=== PATIENT | female | born 1950 | race Caucasian/White ===

== ENCOUNTER → 2024-10-22 | Outpatient (CLI) | payer MEDICARE, BC, SELFPAY ==
[2024-10-22 11:11] LABS: Collection Type, Urine Clean Catch
[2024-10-22 11:28] LABS: Basophils # (Auto) 0.1 Thou/mm3 (0.0-0.2); Basophils % (Auto) 1 % (0-2.5); Eosinophils # (Auto) 0.2 Thou/mm3 (0.0-0.5); Eosinophils % (Auto) 4 % (0-10); Hematocrit 42.9 % (36.0-46.0); Immature Granulocytes % (Auto) 0 % (0-0); Immature Granulocytes Auto 0.01 Thou/mm3 (0.00-0.00); Lymphocytes # (Auto) 1.4 Thou/mm3 (1.0-4.8); Lymphocytes % (Auto) 31 % (10-50); Mean Corpuscular HGB Conc 32.6 g/dl (31.0-37.0); Mean Corpuscular Hemoglobin 29.6 pg (25.0-35.0); Mean Corpuscular Volume 91 fL (80-100); Monocytes # (Auto) 0.3 Thou/mm3 (0.0-0.8); Monocytes % (Auto) 6 % (0-12); Neutrophils # (Auto) 2.6 Thou/mm3 (1.8-7.7); Neutrophils % (Auto) 57 % (37-80); Nucleated Red Blood Cell % 0 /100 WBC (0); Platelet Count 236 Thou/mm3 (140-440); RDW Standard Deviation 44.9 fL (36.4-46.3); Red Blood Count 4.73 Miln/mm3 (4.00-5.20); White Blood Count 4.6 Thou/mm3 (3.6-11.0)
[2024-10-22 11:47] LABS: Bacteria,Urine Rare; Bilirubin,Urine Negative (Negative); Blood,Urine Negative (Negative); Clarity,Urine Clear (Clear/Hazy); Color,Urine Colorless (Lt Yel-Yel); Glucose, Urine Negative (Negative); Ketones,Urine Negative (Negative); Leukocyte Esterase,Urine Positive (Negative); Nitrite,Urine Negative (Negative); Protein,Urine Negative (Neg - Trace); RBC,Urine 1 /hpf (0-3); Specific Gravity,Urine 1.008 (1.001-1.035); Squamous Epithelial Cell,Urine 3 /hpf (0-5); Urobilinogen,Urine Negative mg/dL (0.0-1.0); WBC,Urine 51 /hpf (0-5)
[2024-10-22 11:50] LABS: Alanine Aminotransferase 16 U/L (10-49); Albumin, Serum 4.1 gm/dL (3.4-4.8); Albumin/Globulin Ratio 1.7 (1.2-2.2); Alkaline Phosphatase 82 U/L (46-116); Anion Gap 3 (7-16); Aspartate Amino Transferase 19 U/L (0-34); BUN/Creatinine Ratio 24 Ratio (12-20); Bilirubin,Total 0.7 mg/dL (0.3-1.2); Blood Urea Nitrogen 19 mg/dL (9-23); Calcium 9.4 mg/dL (8.3-10.6); Calcium (Corrected) 9.4 mg/dL (8.5-10.1); Carbon Dioxide 30.8 mMol/L (20.0-31.0); Cardiac Risk Estimate 2.4 RATIO (3.7-5.6); Chloride 107 mMol/L (98-107); Cholesterol 184 mg/dL (132-200); Creatinine (Component) 0.8 mg/dL (0.6-1.3); Globulin 2.4 gm/dL (2.3-3.5); Glucose 87 mg/dL (74-106); HDL Cholesterol 77 mg/dL (40-60); LDL Cholesterol,Calculated 91 mg/dL (0-130); Osmolality,Calculated 282 (275-295); Potassium 4.3 mMol/L (3.4-5.1); Sodium 141 mMol/L (136-145); Thyroid Stimulating Hormone 1.91 uIU/mL (0.55-4.78); Total Protein 6.5 gm/dL (5.7-8.2); Triglycerides 82 mg/dL (30-150); eGFR > 60 See Note
== END | disposition home or self-care (01) ==
LOC: COPL 10:23
PROVIDERS: PCP Family Medicine; Referring Provider Family Medicine; Visit Provider Family Medicine
DX: I10 Essential (primary) hypertension (principal)
CPT/HCPCS: 36415; 80053; 80061; 81001; 84443; 85025

== ENCOUNTER → 2024-10-26 | Outpatient (CLI) | payer MEDICARE, BC, SELFPAY ==
--- NOTE | 2024-10-26 13:49 | XR_ITS ---
Examination: Left knee 2 views Technique one AP lateral left knee 2 views Exam date and time: October 26, 2024, 49 hours Indications: Left knee pain one year. Findings: Advanced tricompartment osteoarthritis, severe narrowing lateral joint space No fracture No dislocation Small knee effusion Impression: Advanced tricompartment osteoarthritis
--- NOTE | 2024-10-26 13:49 | XR_ITS ---
Examination: Bilateral PA knees standing flexion Exam date and time: 2024, 1415 hrs. Indications: Left knee pain one year. Findings: Moderate osteopenia Advanced narrowing lateral joint space left knee Total right knee arthroplasty with satisfactory alignment No fracture Impression: Advanced narrowing lateral joint space left knee
--- NOTE | 2024-10-26 13:49 | XR_ITS ---
Examination: Shoulder,left, 3 views Technique: Shoulder AP internal rotation, AP external rotation, Y view shoulder, 3 views Exam date and time :October 26, 2024 1558 hrs. Indications: Left shoulder pain beginning 6 months ago. Findings: Mild to moderate glenohumeral joint osteoarthritis No shoulder fracture or dislocation. No thoracic vertebral bodies Impression: Mild to moderate glenohumeral joint osteoarthritis
== END | disposition home or self-care (01) ==
PROVIDERS: PCP Family Medicine; Referring Provider Orthopaedic Surgery; Visit Provider Orthopaedic Surgery
DX: M19.012 Primary osteoarthritis, left shoulder (principal); M17.12 Unilateral primary osteoarthritis, left knee; M25.862 Other specified joint disorders, left knee
CPT/HCPCS: 73030; 73560; 73565

== ENCOUNTER 2024-12-06 10:26 | Outpatient (AMB) | payer MEDICARE, BC, SELFPAY ==
[2024-12-06 10:48] VITALS: BP 170/108; PULSE 96; RESP 18; TEMP 36.4; O2SAT 96; BMI 28.1
--- NOTE | 2024-12-06 10:48 | PD.ORTHCLVIS ---
Vital signs 12/06/24 10:48 Height 1.68 m Height Method Stated Weight 79.067 kg Weight Measurement Method Standing Scale BMI 28.1 BP 170/108 H Blood Pressure Source Automatic Cuff Blood Pressure Location Left Upper Arm Position Sitting Respiration 18 Pulse 96 Pulse Source Monitor Temp 97.6 F Temp Source Temporal Artery Scan Pulse Oximetry (%) 96 Oxygen Delivery Method Room Air Med/Allergies Allergies & Medications Allergies adhesive tape Allergy (Severe, Verified 12/06/24 10:49) ITICHING hydrocodone Allergy (Severe, Verified 12/06/24 10:49) ITICHING Medication Reconciliation celecoxib 200 mg capsule (Celebrex) 200 mg PO QDAY #0 caps 10/09/14 [History Confirmed 12/06/24] duloxetine 30 mg capsule,delayed release (Cymbalta) 30 mg PO BID #0 caps 10/09/14 [History Confirmed 12/06/24] estradiol 1 mg tablet (Estrace) 1 mg PO QDAY #0 tabs 10/09/14 [History Confirmed 12/06/24] tramadol 50 mg tablet (Ultram) 50 mg PO Q4HR PRN AGITATION OR PAIN #0 tabs 10/09/14 [History Confirmed 12/06/24] zolpidem 5 mg tablet (Ambien) 6.25 mg PO HS #0 tabs 10/09/14 [History Confirmed 12/06/24] Exam Exam Patient is in no acute distress and is cooperative with the examination today. Breathing is nonlabored. Patient has a normal mood and affect. Bilateral extremities were evaluated and demonstrates sensation intact to light touch. Palpable pedal pulses are present. No significant edema is present. Bilateral hips were examined. The patient has no pain with log roll of the hips. Internal rotation to 30 degrees and external rotation to 30 degrees is painless. Negative FADIR. Right knee incisions clean dry intact. Range of motion is 0 to 100 degrees Left knee was examined today. The left knee is in varus alignment. Range of motion from 0-115 degrees. Knee is stable to varus and valgus as well as AP translation with <5mm. Patient has a negative McMurrays. There is no pain with patellofemoral compression and no crepitus noted. The knee is tender to palpation medially. X-rays from [facility]] imaging was reviewed by me today. This demonstrates complete joint space obliteration laterally and valgus deformity. Assessment and Plan Problem List (1) Arthritis of left knee: Status: Acute Plan: Patient is a pleasant 74-year-old female with a left knee pain and left knee arthritis of significant severity. The pain is affecting her quality life and happiness. She is currently on the fence whether she wants a knee replacement now or after her trip.We discussed total knee replacement in great detail and she is still deciding when she wants surgery The nature and purpose of the total knee replacement, alternative method(s) of treatment, the material risks involved, and the possibility of complications were fully explained to the patient. The patient does NOT have any of the following contraindications to TKA: - Active infection of the knee joint, OR - Active systemic bacteremia, OR - Active skin infection or open wound at surgical site, OR - Neuropathic arthritis, OR - Severe, rapidly progressive neurological disease, OR - Severe medical condition that makes risks of surgery outweigh the potential benefit The patient was told the most common risks and complications associated with a total knee replacement include, but are not limited to: blood clots in the leg, fatal pulmonary embolism, dislocation of the prosthesis, intraoperative and postoperative fractures of the femur or tibia, infection, failure of the prosthesis or grafting materials, complications from anesthesia, reactions to blood transfusions, postoperative leg length inequality, instability of the knee replacement, nerve damage or injury, vascular injury, delayed wound healing, infection, other injury or even . In addition, there are risks associated with anesthesia given during this operation. Also, the patient was told that after undergoing a total knee replacement there may still be persistent pain or disability. The patient was informed that the success of this operation in part depends upon the mechanical devices which are going to be implanted and that these devices can fail or malfunction, and may need to be repaired or replaced and there are no guarantees as to the longevity of this device or its parts and that it or its parts could fail prematurely. The patient was also notified that during the course of surgery, there may be a need to use bone graft from donors, and that any bone graft used will be carefully screened for communicable diseases, including AIDS, hepatitis, Shaq-Creutzfeldt, or other diseases, but despite the screening procedures, there is a small chance that they could contract one of these diseases. Finally, the patient was asked to follow completely and fully with all advice and recommended treatments, and that recovery and ultimate outcome are affected by their compliance with recommended treatment. We discussed the risks, benefits and treatment alternatives, and the patient is interested in proceeding with surgery. We will set up surgery at her convenience Advanced Care Planning Discussion Advance care planning discussed with:: patient Office Procedures GNS Level of Care Nursing/Assessment Patient Status: Initial/New Patient Nursing Assessment/Reassesment: Medication Reconciliation, Update PMH in EMR and Vital Signs Coordination of Care: Complex Care and Chronic Disease 1-5, Education Complex Pt/Fam, Consent,records obtained, informed consent, 1 Ins Authorization, Lab and Imaging orders, Results/Orders obtained and Staff clarify orders New Patient Charge New Patient Point Assignment: 1124 New Patient Point Charge: DISH UP PERSON Level 4 ([id number]) MA Intake Visit Data Collection New Patient or Established: New Patient (never been to [facility]) Reason for Visit:: LEFT KNEE OSTEOARTHRITIS PCP or OBGYN visit in last 3 months: Yes Hx Now: No Do You Feel Safe at Home: Yes Authorities Contacted: N/A Questionairres Past Medical History Past Medical History Have you ever been diagnosed with any of the following: Cardiology Problems Hypertension: Yes Respiratory Problems Smoking: No Smoking Exposure: No Musculoskeletal Problems Arthritis: Yes Other Problems Blood Transfusions: Yes Subjective Visit Visit for: new patient, knee and x-rays Immunization / Flu Flu Vaccine in the Last 12 Months: Yes Flu Vaccine Exclusion Criteria: Already Received History of Present Illness Chief complaint: Left knee pain Date of injury / onset of symptoms: 11/2023 Kee is a pleasant 74-year-old female with a prior right total knee replacement done quite a while ago. She significant left knee pain and left knee arthritis with valgus deformity. She is currently on the fence whether she wants to get surgery. She has failed conservative treatment including anti-inflammatories and injections in the past. She is going on a trip in April and is trying to figure out if she wants to get the surgery before or after the trip. Personal History Occupation: RETIRED Pain Pain level (0-10): 2 Pain duration: ON AND OFF Pain location: anterior Pain quality: aching Associated signs & symptoms: none Ambulatory data Ambulatory device: none Treatments Improvement with previous injections: No Improvement with PT: No Improvement with NSAIDS: no Review of Systems Review of Systems: All systems negative unless otherwise noted in HPI.
== END 2024-12-06 11:27 | disposition home or self-care (01) ==
LOC: HODSRG 10:26
PROVIDERS: PCP Family Medicine; Referring Provider Family Medicine; Supervising Provider Orthopaedic Surgery Adult Reconstructive Orthopaedic Surgery; Visit Provider Orthopaedic Surgery Adult Reconstructive Orthopaedic Surgery
DX: M17.12 Unilateral primary osteoarthritis, left knee (principal); M25.562 Pain in left knee; M21.062 Valgus deformity, not elsewhere classified, left knee; I10 Essential (primary) hypertension
CPT/HCPCS: 99204; G0463

== ENCOUNTER 2024-12-23 10:16 | Emergency (ER) | payer MEDICARE, BC, SELFPAY ==
[2024-12-23] VITALS (11 sets, daily range): BP systolic 77–222; BP diastolic 45–115; PULSE 77–111; RESP 16–18; TEMP 36.6–36.7; O2SAT 97–98
--- NOTE | 2024-12-23 10:31 | EKG_ITS ---
[facility] Test Date: 2024-12-23 Pat Name: ROX LORENZO Department: Room: - Gender: Female Fashion Model: : 1950 Requested By: Ray Packer Order Number: [id number] Reading MD: Ray Packer Measurements Intervals [place] Rate: 87 P: 10 [place]: 160 QRS: 43 QRSD: 94 T: 40 QT: 360 QTc: 434 Interpretive Statements SINUS RHYTHM WITH OCCASIONAL VENTRICULAR PREMATURE COMPLEXES No previous ECG available for comparison /store/S0/[id number].pdf
--- NOTE | 2024-12-23 10:31 | PD.EDRME ---
Rapid Medical Screening Exam E Arrival date/time: 12/23/24 10:16 74-year-old female with a history of hypertension presents to the emergency room with a chief complaint weakness, lightheadedness, and an elevated blood pressure reading. Patient denies any chest pain, palpitations. I have greeted and performed a focused initial assessment of this patient. A comprehensive ED assessment and evaluation of the patient, analysis of all test results, and completion of the medical decision making process will be conducted by additional ED providers. Chief Complaint: General Adult/Misc Complain Vital signs: Vital Signs Temperature 97.8 F 12/23/24 10:26 Pulse Rate 111 H 12/23/24 10:26 Respiratory Rate 18 12/23/24 10:26 Blood Pressure 199/113 H 12/23/24 10:26 Pulse Oximetry (%) 97 12/23/24 10:26 Oxygen Delivery Method Room Air 12/23/24 10:26 Vital signs reviewed by provider: Yes
[2024-12-23 10:48] LABS: Basophils # (Auto) 0.1 Thou/mm3 (0.0-0.2); Basophils % (Auto) 1 % (0-2.5); Eosinophils # (Auto) 0.2 Thou/mm3 (0.0-0.5); Eosinophils % (Auto) 4 % (0-10); Hematocrit 43.1 % (36.0-46.0); Hemoglobin 14.9 g/dL (12.0-16.0); Immature Granulocytes % (Auto) 0 % (0-0); Lymphocytes # (Auto) 1.3 Thou/mm3 (1.0-4.8); Lymphocytes % (Auto) 23 % (10-50); Mean Corpuscular HGB Conc 34.6 g/dl (31.0-37.0); Mean Corpuscular Hemoglobin 30.2 pg (25.0-35.0); Mean Corpuscular Volume 87 fL (80-100); Monocytes # (Auto) 0.4 Thou/mm3 (0.0-0.8); Monocytes % (Auto) 6 % (0-12); Neutrophils # (Auto) 3.8 Thou/mm3 (1.8-7.7); Neutrophils % (Auto) 66 % (37-80); Nucleated Red Blood Cell % 0 /100 WBC (0); Platelet Count 261 Thou/mm3 (140-440); RDW Standard Deviation 42.5 fL (36.4-46.3); Red Blood Count 4.93 Miln/mm3 (4.00-5.20); White Blood Count 5.8 Thou/mm3 (3.6-11.0)
--- NOTE | 2024-12-23 10:49 | PD.EDRECHK ---
ED Recheck Abnl Lab Rx-RME/HPI General Chief Complaint: General Adult/Misc Complain Stated Complaint: HIGH BP 180/116 THIS MORNING, LITE HEADED Time Seen by Provider: 12/23/24 10:38 Arrival date/time: 12/23/24 10:16 RME / HPI RME / HPI narrative: 12/23/24 10:16 74-year-old female with a history of hypertension presents to the emergency room with a chief complaint weakness, lightheadedness, and an elevated blood pressure reading. Patient denies any chest pain, palpitations. I have greeted and performed a focused initial assessment of this patient. A comprehensive ED assessment and evaluation of the patient, analysis of all test results, and completion of the medical decision making process will be conducted by additional ED providers. DR. JACK MAIN ED EVALUATION: Related Data Home Medications ?Medication ?Instructions ?Recorded ?Confirmed celecoxib 200 mg capsule (Celebrex) 200 mg PO QDAY #0 caps 10/09/14 12/06/24 duloxetine 30 mg capsule,delayed 30 mg PO BID #0 caps 10/09/14 12/06/24 release (Cymbalta) estradiol 1 mg tablet (Estrace) 1 mg PO QDAY #0 tabs 10/09/14 12/06/24 tramadol 50 mg tablet (Ultram) 50 mg PO Q4HR PRN AGITATION OR 10/09/14 12/06/24 PAIN #0 tabs zolpidem 5 mg tablet (Ambien) 6.25 mg PO HS #0 tabs 10/09/14 12/06/24 Allergies Allergy/AdvReac Type Severity Reaction Status Date / Time adhesive tape Allergy Severe ITICHING Verified 12/23/24 10:19 hydrocodone Allergy Severe ITICHING Verified 12/23/24 10:19 Course Orders Category Date Time Status EKG (ED ONLY) *Do not use* NOW Care 12/23/24 10:31 Active EKG (ED Only) Stat Exams 12/23/24 10:31 Ordered B-Type Natriuretic Peptide Stat Lab 12/23/24 10:40 Received CBC Stat Lab 12/23/24 10:40 Received Comprehensive Metabolic Panel Stat Lab 12/23/24 10:40 Received Magnesium Stat Lab 12/23/24 10:40 Received Troponin I Stat Lab 12/23/24 10:40 Received Urinalysis Stat Lab 12/23/24 10:31 Ordered cloNIDine HCL [Catapres] Med 12/23/24 10:31 Discontinued 0.1 mg PO X1 ONE Vital Signs Vital signs: Vital Signs Temperature 97.8 F 12/23/24 10:26 Pulse Rate 111 H 12/23/24 10:26 Respiratory Rate 18 12/23/24 10:26 Blood Pressure 199/113 H 12/23/24 10:26 Pulse Oximetry (%) 97 12/23/24 10:26 Oxygen Delivery Method Room Air 12/23/24 10:26 Recheck / Abnormal Lab / Rx MDM Narrative MDM Narrative:: ILesly am scribing for and in the presence of Dr. Jack. Medications / Prescriptions Medication administrations:: Medication Administration History Discontinued Medications Clonidine (Clonidine Hcl 0.1 Mg Tablet) 0.1 mg PO X1 ONE Stop: 12/23/24 10:32 Discharge Plan Prescriptions/Referrals Prescriptions/Med Rec: No Action celecoxib [Celebrex] 200 MG capsule 200 mg PO QDAY Qty: 0 estradiol [Estrace] 1 MG tablet 1 mg PO QDAY Qty: 0 zolpidem [Ambien] 5 MG tablet 6.25 mg PO HS Qty: 0 duloxetine [Cymbalta] 30 MG capsule,delayed release(DR/EC) 30 mg PO BID Qty: 0 tramadol [Ultram] 50 MG tablet 50 mg PO Q4HR PRN (Reason: AGITATION OR PAIN) Qty: 0 Patient Comments: FOR PAIN, NOT TO EXCEED 8 TABS IN 24 HRS Patient/Caregiver Discharge Instructions Print Language: Trinidadian
--- NOTE | 2024-12-23 10:59 | EDNOTE_ITS ---
ED Weakness RME/HPI General Chief complaint: General Adult/Misc Complain Stated complaint: HIGH BP 180/116 THIS MORNING, LITE HEADED Time Seen by Provider: 12/23/24 10:38 Arrival date/time: 12/23/24 10:16 Limitations: no limitations RME / HPI RME / HPI Narrative: 12/23/24 10:16 74-year-old female with a history of hypertension presents to the emergency room with a chief complaint weakness, lightheadedness, and an elevated blood pressure reading. Patient denies any chest pain, palpitations. I have greeted and performed a focused initial assessment of this patient. A comprehensive ED assessment and evaluation of the patient, analysis of all test results, and completion of the medical decision making process will be conducted by additional ED providers. DR. 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 No chest pain, abdominal pain, vomiting, or other symptoms at this time. Related Data Home Medications ?Medication ?Instructions ?Recorded ?Confirmed celecoxib 200 mg capsule (Celebrex) 200 mg PO QDAY #0 caps 10/09/14 12/06/24 duloxetine 30 mg capsule,delayed 30 mg PO BID #0 caps 10/09/14 12/06/24 release (Cymbalta) estradiol 1 mg tablet (Estrace) 1 mg PO QDAY #0 tabs 0 10/09/14 12/06/24 tramadol 50 mg tablet (Ultram) 50 mg PO Q4HR PRN AGITA TION OR 10/09/14 12/06/24 PAIN #0 tabs zolpidem 5 mg tablet (Ambien) 6.25 mg PO HS #0 tabs 12/06/24 Previous Rx's ?Medication ?Instructions ?Recorded hydrochlorothiazide 12.5 mg tablet 12.5 mg PO QAM hype rtension #10 12/23/24 tabs lisinopril 5 mg tablet 5 mg PO QDAY hypertension #1 0 tabs 12/23/24 Allergies Allergy/AdvReac Type Severity Reaction Status Date / Time adhesive tape Allergy Severe ITICHING Verified 12/23/24 10:19 hydrocodone Allergy Severe ITICHING Verified 12/23/24 10:19 Review of Systems Review of Systems Systems Reviewed: All systems reviewed, normal except as documented Narrative Review of Systems: GEN: No fever, no chills, no weight loss EYES: No discharge, no visual changes, no pain HEENT: No ear pain, no congestion, no sore throat PULM: No shortness of breath, no cough, no congestion CV: No chest pain, no dyspnea on exertion, no palpitations GI: No nausea, no vomiting, no diarrhea, no pain, no constipation : No frequency, no urgency and no dysuria MUSC/SKEL: No joint pain, no back pain SKIN: No rash PSYCH: No hallucinations, no depression HEME/LYMPH: No easy bleeding or bruising tendencies NEURO: + generalized weakness, no headache Past Medical History Past Medical History CARDIAC: Positive Hypertension MUSCULOSKELETAL: Positive Arthritis OTHER HISTORY: Positive Blood Transfusions Social History SMOKING STATUS: Never smoker SUBSTANCE USE: does not use ALCOHOL: Never ED Exam General Limitations: Present no limitations General appearance: Present alert, in no apparent distress and anxious (mild) Head Head exam: Present atraumatic, normocephalic and normal inspection Eye Eye exam: Present normal appearance, PERRL and EOMI ENT ENT exam: Present normal exam, normal oropharynx and mucous membranes moist Neck Neck exam: Present normal inspection, full ROM, trachea midline and other (old surgical scar in lower anterior neck area) Chest Chest inspection: Present normal inspection and symmetric chest wall rise Respiratory Respiratory exam: Present normal lung sounds bilaterally Cardiovascular Cardiovascular exam: Present regular rate, normal rhythm and normal heart sounds Abdominal Exam Abdominal exam: Present soft and normal bowel sounds Extremities Exam Extremities exam: Present normal inspection, full ROM and other (changes of osteoarthritis to bilateral hands) Back Exam Back exam: Present normal inspection and full ROM Neurological Exam Neurological exam: Present alert, oriented X3 and CN II-XII intact Psychiatric Psychiatric exam: Present normal affect and normal mood Skin Skin exam: Present warm, dry, intact and normal color Course Quality Measures none Orders Category Date Time Status EKG (ED ONLY) *Do not use* NOW Care 12/23/24 10:31 Completed Hep [Insert IV] NOW Care 12/23/24 10:56 Active Insert IV NOW Care 12/23/24 11:33 Completed EKG (ED Only) Stat Exams 12/23/24 10:31 Draft B-Type Natriuretic Peptide Stat Lab 12/23/24 10:40 Completed CBC Stat Lab 12/23/24 10:40 Completed Comprehensive Metabolic Panel Stat Lab 12/23/24 10:40 Completed Magnesium Stat Lab 12/23/24 10:40 Completed Troponin I Stat Lab 12/23/24 10:40 Completed Urinalysis Stat Lab 12/23/24 11:18 Completed Lisinopril [Prinivil] Med 12/23/24 13:31 Discontinued 10 mg PO X1 ONE cloNIDine HCL [Catapres] Med 12/23/24 10:31 Discontinued 0.1 mg PO X1 ONE cloNIDine HCL [Catapres] Med 12/23/24 12:21 Discontinued 0.1 mg PO X1 ONE hydrALAZINE INJ [Apresoline Inj] Med 12/23/24 10:56 Discontinued 5 mg IV X1 ONE hydrALAZINE INJ [Apresoline Inj] Med 12/23/24 11:55 Discontinued 5 mg IV X1 ONE hydrALAZINE INJ [Apresoline Inj] Med 12/23/24 12:21 Discontinued 5 mg IV X1 ONE hydroCHLOROthiazide Med 12/23/24 13:31 Discontinued 12.5 mg PO X1 ONE Vital Signs Vital signs: Vital Signs Temperature 97.8 F 12/23/24 10:26 Pulse Rate 111 H 12/23/24 10:26 Respiratory Rate 18 12/23/24 10:26 Blood Pressure 199/113 H 12/23/24 10:26 Pulse Oximetry (%) 97 12/23/24 10:26 Oxygen Delivery Method Room Air 12/23/24 10:26 Weakness MDM Narrative MDM Narrative:: I, Lesly Guardado am scribing for and in the presence of Dr. Jack. Patient data External records reviewed:: [facility] previous records (Reviewed Orthopedics note by Dr. 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 Interpreted by me: sinus rhythm, rate 87, occasional PVCs, OH interval 160 ms, QRS duration 94 ms, QT/QTc 360/405, P-R-T axis 10, 43, and 40 Medications / Prescriptions Medications or Prescriptions considered but not ordered:: none Medication administrations:: Medication Administration History Discontinued Medications Clonidine (Clonidine Hcl 0.1 Mg Tablet) 0.1 mg PO X1 ONE Stop: 12/23/24 10:32 Last Admin: 12/23/24 11:34 Dose: 0.1 mg Documented By: TM Clonidine (Clonidine Hcl 0.1 Mg Tablet) 0.1 mg PO X1 ONE Stop: 12/23/24 12:22 Last Admin: 12/23/24 12:50 Dose: 0.1 mg Documented By: TM Hydralazine HCl (Hydralazine Inj 20 Mg/Ml Vial) 5 mg IV X1 ONE Stop: 12/23/24 10:57 Last Admin: 12/23/24 11:35 Dose: 5 mg Documented By: TM Hydralazine HCl (Hydralazine Inj 20 Mg/Ml Vial) 5 mg IV X1 ONE Stop: 12/23/24 11:56 Last Admin: 12/23/24 12:14 Dose: 5 mg Documented By: TM Hydralazine HCl (Hydralazine Inj 20 Mg/Ml Vial) 5 mg IV X1 ONE Stop: 12/23/24 12:22 Last Admin: 12/23/24 12:50 Dose: 5 mg Documented By: TM Hydrochlorothiazide (Hydrochlorothiazide 12.5 Mg Capsule) 12.5 mg PO X1 ONE Stop: 12/23/24 13:32 Last Admin: 12/23/24 13:43 Dose: Not Given Documented By: TM Non-Admin Reason: Cancelled by Provider Lisinopril (Lisinopril 20 Mg Tablet) 10 mg PO X1 ONE Stop: 12/23/24 13:32 Last Admin: 12/23/24 13:43 Dose: Not Given Documented By: TM Non-Admin Reason: Cancelled by Provider see above Consultations Consultation(s) initiated? (list below): No Diagnosis Weakness Differential Diagnosis: anemia, dehydration and other (uncontrolled hypertension) Most likely diagnosis given after review of the tests above:: Uncontrolled hypertension Admission Indicated Admission indicated?: not indicated Admission Request Was there a request for admission?: No Disposition Plan Disposition Plan: Discharge Discharge Attestation Discharge Attestation: The patient and all family members were given an opportunity to ask questions and understood the discharge instructions. Discharge instructions specifically effects, indications for sooner follow up or return to the emergency department, and the expected course of current diagnosis. Patient condition: Stable Discharge Plan Plan Patient Disposition: HOME (Self Care) Discharge Disposition comment: Please follow-up with your primary care provider in 1 day. hold Celebrex until you see your provider Prescriptions/Referrals Prescriptions/Med Rec: New lisinopril 5 mg tablet 5 mg PO QDAY MDD 1 Qty: 10 0RF hydrochlorothiazide 12.5 mg tablet 12.5 mg PO QAM MDD 1 Qty: 10 0RF No Action celecoxib [Celebrex] 200 MG capsule 200 mg PO QDAY Qty: 0 estradiol [Estrace] 1 MG tablet 1 mg PO QDAY Qty: 0 zolpidem [Ambien] 5 MG tablet 6.25 mg PO HS Qty: 0 duloxetine [Cymbalta] 30 MG capsule,delayed release(DR/EC) 30 mg PO BID Qty: 0 tramadol [Ultram] 50 MG tablet 50 mg PO Q4HR PRN (Reason: AGITATION OR PAIN) Qty: 0 Patient Comments: FOR PAIN, NOT TO EXCEED 8 TABS IN 24 HRS Referrals: Sonya Randhawa MD [Primary Care Provider] - In 1 week Problem List Clinical Impression: Uncontrolled hypertension Patient/Caregiver Discharge Instructions Additional Instructions: Take the new medication tomorrow first thing in the morning. Print Language: Amharic Stand Alone Forms: Jazlyn Award Info., Patient Portal Info Letter
[2024-12-23 11:02] LABS: B-Type Natriuretic Peptide 73 pg/mL (0-100)
[2024-12-23 11:04] LABS: Alanine Aminotransferase 17 U/L (10-49); Albumin, Serum 4.4 gm/dL (3.4-4.8); Albumin/Globulin Ratio 1.5 (1.2-2.2); Alkaline Phosphatase 95 U/L (46-116); Anion Gap 7 (7-16); Aspartate Amino Transferase 23 U/L (0-34); BUN/Creatinine Ratio 16 Ratio (12-20); Bilirubin,Total 0.7 mg/dL (0.3-1.2); Blood Urea Nitrogen 13 mg/dL (9-23); Calcium 9.3 mg/dL (8.3-10.6); Calcium (Corrected) 9.3 mg/dL (8.5-10.1); Carbon Dioxide 27.5 mMol/L (20.0-31.0); Chloride 106 mMol/L (98-107); Creatinine (Component) 0.8 mg/dL (0.6-1.3); Globulin 2.9 gm/dL (2.3-3.5); Glucose 111 mg/dL (74-106); Magnesium 1.9 mg/dL (1.6-2.6); Osmolality,Calculated 280 (275-295); Sodium 140 mMol/L (136-145); Total Protein 7.3 gm/dL (5.7-8.2); Troponin I < 0.020 ng/mL (0.0-0.045); eGFR > 60 See Note
[2024-12-23 11:25] LABS: Collection Type, Urine Clean Catch; Squamous Epithelial Cell,Urine 0 /hpf (0-5); WBC,Urine 0 /hpf (0-5)
[2024-12-23 11:30] LABS: Bilirubin,Urine Negative (Negative); Blood,Urine Negative (Negative); Clarity,Urine Clear (Clear/Hazy); Glucose, Urine Negative (Negative); Ketones,Urine Negative (Negative); Leukocyte Esterase,Urine Negative (Negative); Nitrite,Urine Negative (Negative); Protein,Urine Negative (Neg - Trace); RBC,Urine 1 /hpf (0-3); Specific Gravity,Urine 1.007 (1.001-1.035); Urobilinogen,Urine Negative mg/dL (0.0-1.0)
[2024-12-23 11:31] LABS: Color,Urine Lt-Yellow (Lt Yel-Yel)
[2024-12-23] MEDS: cloNIDine HCL 0.1 MG TABLET PO ×2 (11:34→12:50)
[2024-12-23] MEDS: hydrALAZINE INJ 20 MG/ML VIAL 5 MG IV ×3 (11:35→12:50)
[2024-12-23] MEDS: SODIUM CHLORIDE 0.9% 500 ML 500 ML 999 ML IV (15:38)
[2024-12-23] MEDS: ACETAMINOPHEN 325 MG TABLET 650 MG PO (17:57)
== END 2024-12-23 18:07 | disposition home or self-care (01) ==
PROVIDERS: Nurse Practitioner Family; Emergency Provider Family Medicine; PCP Family Medicine
DX: I10 Essential (primary) hypertension (principal); R53.1 Weakness; M19.90 Unspecified osteoarthritis, unspecified site; Z96.651 Presence of right artificial knee joint; I49.3 Ventricular premature depolarization
CPT/HCPCS: 36415; 80053; 81001; 83735; 83880; 84484; 85025; 93005; 96360; 99284; J0360; J7040; A9270

== ENCOUNTER → 2025-06-10 | Outpatient (CLI) | payer MEDICARE, BC, SELFPAY ==
--- NOTE | 2025-06-10 16:11 | XR_ITS ---
EXAMINATION: Bilateral knees AP single view TECHNIQUE: Standing bilateral AP knee single view Date and time: June 10, 2025, 1652 hours INDICATIONS: Left knee pain beginning 4 months ago FINDINGS: Advanced osteoarthritis medial lateral joint spaces left knee Severe narrowing lateral joint space left knee [id number] No fracture Total right knee arthroplasty with satisfactory alignment IMPRESSION: Advanced osteoarthritis medial lateral joint space left knee including severe narrowing [id number] lateral joint space
--- NOTE | 2025-06-10 16:11 | XR_ITS ---
Examination: Shoulder, left, 3 views Technique: Shoulder AP internal rotation, AP external rotation, Y view shoulder, 3 views Exam date and time : June 10, 2025, 1644 hours INDICATIONS: Left shoulder pain beginning 4 months ago. FINDINGS: Moderate narrowing glenohumeral joint No shoulder fracture or dislocation. No calcific tendinitis IMPRESSION: No shoulder fracture or dislocation
--- NOTE | 2025-06-10 16:11 | XR_ITS ---
Examination: Knee, left, 3 views Technique: Knee AP, lateral, oblique 3 views Date and time of exam: June 10, 2025 at 1644 hours INDICATIONS: Left knee pain beginning 4 months ago. FINDINGS: Advanced tricompartment osteoarthritis No fracture Moderate osteopenia. Moderate knee effusion IMPRESSION: Advanced left knee tricompartment osteoarthritis
[2025-06-10 18:09] LABS: Basophils # (Auto) 0.1 Thou/mm3 (0.0-0.2); Basophils % (Auto) 1 % (0-2.5); Eosinophils # (Auto) 0.3 Thou/mm3 (0.0-0.5); Eosinophils % (Auto) 4 % (0-10); Hematocrit 44.2 % (36.0-46.0); Hemoglobin 14.5 g/dL (12.0-16.0); Immature Granulocytes Auto 0.02 Thou/mm3 (0.00-0.00); Lymphocytes # (Auto) 1.7 Thou/mm3 (1.0-4.8); Lymphocytes % (Auto) 21 % (10-50); Mean Corpuscular HGB Conc 32.8 g/dl (31.0-37.0); Mean Corpuscular Hemoglobin 30.0 pg (25.0-35.0); Mean Corpuscular Volume 91 fL (80-100); Monocytes # (Auto) 0.5 Thou/mm3 (0.0-0.8); Monocytes % (Auto) 7 % (0-12); Neutrophils # (Auto) 5.4 Thou/mm3 (1.8-7.7); Neutrophils % (Auto) 67 % (37-80); Nucleated Red Blood Cell # 0.00 Thou/mm3 (0.00-0.00); Nucleated Red Blood Cell % 0 /100 WBC (0); Platelet Count 307 Thou/mm3 (140-440); RDW Standard Deviation 43.5 fL (36.4-46.3); Red Blood Count 4.84 Miln/mm3 (4.00-5.20); White Blood Count 8.0 Thou/mm3 (3.6-11.0)
[2025-06-10 18:25] LABS: Alanine Aminotransferase 14 U/L (10-49); Albumin, Serum 4.6 gm/dL (3.4-4.8); Albumin/Globulin Ratio 1.7 (1.2-2.2); Alkaline Phosphatase 85 U/L (46-116); Anion Gap 8 (7-16); Aspartate Amino Transferase 22 U/L (0-34); BUN/Creatinine Ratio 13 Ratio (12-20); Bilirubin,Total 0.4 mg/dL (0.3-1.2); Blood Urea Nitrogen 17 mg/dL (9-23); Calcium 10.2 mg/dL (8.3-10.6); Calcium (Corrected) 10.2 mg/dL (8.5-10.1); Carbon Dioxide 30.8 mMol/L (20.0-31.0); Chloride 102 mMol/L (98-107); Creatinine (Component) 1.3 mg/dL (0.6-1.3); Globulin 2.7 gm/dL (2.3-3.5); Glucose 88 mg/dL (74-106); Osmolality,Calculated 281 (275-295); Potassium 3.6 mMol/L (3.4-5.1); Sodium 141 mMol/L (136-145); Total Protein 7.3 gm/dL (5.7-8.2); eGFR 43 See Note
== END | disposition home or self-care (01) ==
LOC: CDIM 16:13 → COPL 17:13
PROVIDERS: PCP Family Medicine; Referring Provider Orthopaedic Surgery; Visit Provider Radiology Diagnostic Radiology
DX: M17.12 Unilateral primary osteoarthritis, left knee (principal); M25.862 Other specified joint disorders, left knee; M25.562 Pain in left knee; Z79.1 Long term (current) use of non-steroidal anti-inflammatories (NSAID)
CPT/HCPCS: 36415; 73030; 73560; 73562; 73564; 73565; 80053; 85025

== ENCOUNTER 2025-06-20 14:00 | Outpatient (AMB) | payer MEDICARE, BC, SELFPAY ==
[2025-06-20 14:08] VITALS: BP 126/81; PULSE 102; RESP 19; TEMP 36.7; O2SAT 97; BMI 26.9
--- NOTE | 2025-06-20 14:08 | PD.ORTHCLVIS ---
Vital signs 06/20/25 14:08 Height 1.68 m Height Method Stated Weight 75.835 kg Weight Measurement Method Standing Scale BMI 26.9 BP 126/81 Blood Pressure Source Automatic Cuff Blood Pressure Location Left Upper Arm Position Sitting Respiration 19 Pulse 102 H Pulse Source Monitor Temp 98.0 F Temp Source Temporal Artery Scan Pulse Oximetry (%) 97 Oxygen Delivery Method Room Air Med/Allergies Allergies & Medications Allergies adhesive tape Allergy (Severe, Verified 06/20/25 14:09) ITICHING hydrocodone Allergy (Severe, Verified 06/20/25 14:09) ITICHING Medication Reconciliation celecoxib 200 mg capsule (Celebrex) 200 mg PO QDAY #0 caps 10/09/14 [History Confirmed 06/20/25] duloxetine 30 mg capsule,delayed release (Cymbalta) 30 mg PO BID #0 caps 10/09/14 [History Confirmed 06/20/25] estradiol 1 mg tablet (Estrace) 1 mg PO QDAY #0 tabs 10/09/14 [History Confirmed 06/20/25] tramadol 50 mg tablet (Ultram) 50 mg PO Q4HR PRN AGITATION OR PAIN #0 tabs 10/09/14 [History Confirmed 06/20/25] zolpidem 5 mg tablet (Ambien) 6.25 mg PO HS #0 tabs 10/09/14 [History Confirmed 06/20/25] lisinopril 5 mg tablet 5 mg PO QDAY hypertension #10 tabs 12/23/24 [Rx Confirmed 06/20/25] diclofenac sodium 3 % topical gel (Solaraze) 1 applic topical BID #100 grams 06/20/25 [Rx] Exam Exam Patient is in no acute distress and is cooperative with the examination today. Breathing is nonlabored. Patient has a normal mood and affect. Bilateral extremities were evaluated and demonstrates sensation intact to light touch. Palpable pedal pulses are present. No significant edema is present. Bilateral hips were examined. The patient has no pain with log roll of the hips. Internal rotation to 30 degrees and external rotation to 30 degrees is painless. Negative FADIR. Right knee incisions clean dry intact. Range of motion is 0 to 100 degrees Left knee was examined today. The left knee is in varus alignment. Range of motion from 0-115 degrees. Knee is stable to varus and valgus as well as AP translation with <5mm. Patient has a negative McMurrays. There is no pain with patellofemoral compression and no crepitus noted. The knee is tender to palpation medially. X-rays from [facility] imaging was reviewed by me today. This demonstrates complete joint space obliteration laterally and valgus deformity. Right knee demonstrates cemented total knee replacement in alignment position Assessment and Plan Problem List (1) Arthritis of left knee: Status: Acute Plan: Patient is a pleasant 74-year-old female with a left knee pain and left knee arthritis of significant severity. The pain is affecting her quality life and happiness. The left knee pain is bothering her quite a bit and we discussed total knee replacement is reasonable option and she was pursue this. For the right side, she has Pez anserine bursitis. This started 2 days ago and it has improved some The nature and purpose of the total knee replacement, alternative method(s) of treatment, the material risks involved, and the possibility of complications were fully explained to the patient. The patient does NOT have any of the following contraindications to TKA: - Active infection of the knee joint, OR - Active systemic bacteremia, OR - Active skin infection or open wound at surgical site, OR - Neuropathic arthritis, OR - Severe, rapidly progressive neurological disease, OR - Severe medical condition that makes risks of surgery outweigh the potential benefit The patient was told the most common risks and complications associated with a total knee replacement include, but are not limited to: blood clots in the leg, fatal pulmonary embolism, dislocation of the prosthesis, intraoperative and postoperative fractures of the femur or tibia, infection, failure of the prosthesis or grafting materials, complications from anesthesia, reactions to blood transfusions, postoperative leg length inequality, instability of the knee replacement, nerve damage or injury, vascular injury, delayed wound healing, infection, other injury or even . In addition, there are risks associated with anesthesia given during this operation. Also, the patient was told that after undergoing a total knee replacement there may still be persistent pain or disability. The patient was informed that the success of this operation in part depends upon the mechanical devices which are going to be implanted and that these devices can fail or malfunction, and may need to be repaired or replaced and there are no guarantees as to the longevity of this device or its parts and that it or its parts could fail prematurely. The patient was also notified that during the course of surgery, there may be a need to use bone graft from donors, and that any bone graft used will be carefully screened for communicable diseases, including AIDS, hepatitis, Shaq-Creutzfeldt, or other diseases, but despite the screening procedures, there is a small chance that they could contract one of these diseases. Finally, the patient was asked to follow completely and fully with all advice and recommended treatments, and that recovery and ultimate outcome are affected by their compliance with recommended treatment. We discussed the risks, benefits and treatment alternatives, and the patient is interested in proceeding with surgery. We will set up surgery at her convenience Advanced Care Planning Discussion Advance care planning discussed with:: patient Office Procedures GNS Level of Care Nursing/Assessment Patient Status: Established Patient Nursing Assessment/Reassesment: Medication Reconciliation, Update PMH in EMR and Vital Signs Coordination of Care: Complex Care and Chronic Disease 1-5, Education Complex Pt/Fam, Consent,records obtained, informed consent, Results/Orders obtained and Staff clarify orders Established Patient Charge Established Patient Point Assignment: 95 Established Patient Point Charge: EP Level 3 (80-115) MA Intake Visit Data Collection New Patient or Established: Established Patient (seen at [facility] within 3 years) Reason for Visit:: LEFT KNEE OSTEOARTHRITIS Seen by Clinical Staff ONLY (RN/MA): No PCP or OBGYN visit in last 3 months: Yes Hx Now: No Do You Feel Safe at Home: Yes Authorities Contacted: N/A Questionairres Past Medical History Past Medical History Have you ever been diagnosed with any of the following: Cardiology Problems Congestive Heart Failure: No Hypertension: Yes Respiratory Problems Chronic Obstructive Pulmonary Disease (COPD): No Smoking: No Smoking Exposure: No Genital/Urinary Problems Renal Disease: No Musculoskeletal Problems Arthritis: Yes Endocrine Problems Diabetes Mellitus Type 1: No Diabetes Mellitus Type 2: No Other Problems Blood Transfusions: Yes Subjective Visit Visit for: follow up visit and knee Immunization / Flu Flu Vaccine in the Last 12 Months: Yes Flu Vaccine Exclusion Criteria: Already Received History of Present Illness Chief complaint: Left knee pain Date of injury / onset of symptoms: 11/2023 Erin is a pleasant 74-year-old female with a prior right total knee replacement done quite a while ago. She has some right knee pain on the medial side that started recently. This came out of the blue there is no specific trauma. On the anteromedial aspect. It has improved somewhat but there is still some pain In addition, she reports significant left knee pain with valgus deformity. The pain has increased. She has failed conservative treatment including anti-inflammatories and injections in the past. The left knee pain is affecting her quality life and happiness Personal History Occupation: RETIRED Pain Pain level (0-10): 2 Pain duration: ON AND OFF Pain location: anterior Pain quality: aching Associated signs & symptoms: none Ambulatory data Ambulatory device: none Treatments Improvement with previous injections: No Improvement with PT: No Improvement with NSAIDS: no Review of Systems Review of Systems: All systems negative unless otherwise noted in HPI.
== END 2025-06-20 14:26 | disposition home or self-care (01) ==
LOC: HODSRG 14:00
PROVIDERS: PCP Family Medicine; Referring Provider Family Medicine; Supervising Provider Orthopaedic Surgery Adult Reconstructive Orthopaedic Surgery; Visit Provider Orthopaedic Surgery Adult Reconstructive Orthopaedic Surgery
DX: M25.562 Pain in left knee (principal); M17.12 Unilateral primary osteoarthritis, left knee; Z96.651 Presence of right artificial knee joint; M25.561 Pain in right knee; M21.062 Valgus deformity, not elsewhere classified, left knee; I10 Essential (primary) hypertension
CPT/HCPCS: 99213; G0463

== ENCOUNTER → 2025-07-03 | Outpatient (CLI) | payer MEDICARE, BC, SELFPAY ==
--- NOTE | 2025-07-03 10:30 | XR_ITS ---
CT left lower extremity, without contrast. 2-D sagittal reconstructions. 2-D coronal reconstructions. 3-D reconstructions. Date and time of exam: July 03, 2025, 1050 hours INDICATIONS: Diagnosis primary left knee unilateral osteoarthritis, left knee pain 1 year CTDI: vol (mGy): 12.3 DLP: (mGycm): 856 Technique: Multiple 1.25 mm axial sections of the left lower extremity without intravenous contrast have been obtained. 2-D sagittal and coronal reconstructions have been obtained. 3-D reconstructions have been obtained. Low dose protocols were performed. One or more of the following dose reduction techniques were used; automated exposure control, adjustment of the mA and/or KV according to patient size, use of iterative reconstruction technique. Findings: Moderate osteopenia Severe right hip osteoarthritis, severe joint space narrowing and subarticular sclerosis Moderate narrowing left hip joint Advanced tricompartment left knee osteoarthritis No avascular necrosis No fracture IMPRESSION: Severe right hip osteoarthritis Advanced tricompartment osteoarthritis left knee
== END | disposition home or self-care (01) ==
LOC: CCTX 10:16
PROVIDERS: PCP Family Medicine; Referring Provider Orthopaedic Surgery Adult Reconstructive Orthopaedic Surgery; Visit Provider Orthopaedic Surgery Adult Reconstructive Orthopaedic Surgery
DX: M17.12 Unilateral primary osteoarthritis, left knee (principal); M16.11 Unilateral primary osteoarthritis, right hip
CPT/HCPCS: 73700

== ENCOUNTER 2025-07-18 09:53 | Outpatient (AMB) | payer MEDICARE, BC, SELFPAY ==
--- NOTE | 2025-07-18 10:24 | ORTHONT_ITS ---
Vital signs 07/18/25 10:26 Height 1.68 m Height Method Stated Weight 75.07 kg Weight Measurement Method Standing Scale BMI 26.6 BP 135/77 H Blood Pressure Source Automatic Cuff Blood Pressure Location Right Upper Arm Position Sitting Respiration 18 Pulse 90 Pulse Source Monitor Temp 97.8 F Temp Source Temporal Artery Scan Pulse Oximetry (%) 96 Oxygen Delivery Method Room Air Med/Allergies Allergies & Medications Allergies adhesive tape Allergy (Severe, Verified 07/18/25 10:28) ITICHING hydrocodone Allergy (Severe, Verified 07/18/25 10:28) ITICHING Medication Reconciliation celecoxib 200 mg capsule (Celebrex) 200 mg PO QDAY #0 caps 10/09/14 [History Confirmed 07/18/25] duloxetine 30 mg capsule,delayed release (Cymbalta) 30 mg PO BID #0 caps 10/09/14 [History Confirmed 07/18/25] estradiol 1 mg tablet (Estrace) 1 mg PO QDAY #0 tabs 10/09/14 [History Confirmed 07/18/25] tramadol 50 mg tablet (Ultram) 50 mg PO Q4HR PRN AGITATION OR PAIN #0 tabs 10/09/14 [History Confirmed 07/18/25] zolpidem 5 mg tablet (Ambien) 6.25 mg PO HS #0 tabs 10/09/14 [History Confirmed 07/18/25] lisinopril 5 mg tablet 5 mg PO QDAY hypertension #10 tabs 12/23/24 [Rx Confirmed 07/18/25] diclofenac sodium 3 % topical gel (Solaraze) 1 applic topical BID #100 grams 06/20/25 [Rx Confirmed 07/18/25] Exam Exam Patient is in no acute distress and is cooperative with the examination today. Breathing is nonlabored. Patient has a normal mood and affect. Bilateral extremities were evaluated and demonstrates sensation intact to light touch. Palpable pedal pulses are present. No significant edema is present. Bilateral hips were examined. The patient has no pain with log roll of the hips. Internal rotation to 30 degrees and external rotation to 30 degrees is painless. Negative FADIR. Right knee incisions clean dry intact. Range of motion is 0 to 100 degrees Left knee was examined today. The left knee is in varus alignment. Range of mo tion from 0-115 degrees. Knee is stable to varus and valgus as well as AP translation with <5mm. Patient has a negative McMurrays. There is no pain with patellofemoral compression and no crepitus noted. The knee is tender to palpation medially. X-rays from [facility] imaging was reviewed by me today. This demonstrates complete joint space obliteration laterally and valgus deformity. Right knee demonstrates cemented total knee replacement in alignment position Assessment and Plan Problem List (1) Arthritis of left knee: Status: Acute Plan: Patient is a pleasant 74-year-old female with a left knee pain and left knee arthritis of significant severity. The pain is affecting her quality life and happiness. The left knee pain is bothering her quite a bit and we discussed total knee replacement is reasonable option and she was pursue this. The nature and purpose of the total knee replacement, alternative method(s) of treatment, the material risks involved, and the possibility of complications were fully explained to the patient. The patient does NOT have any of the following contraindications to TKA: - Active infection of the knee joint, OR - Active systemic bacteremia, OR - Active skin infection or open wound at surgical site, OR - Neuropathic arthritis, OR - Severe, rapidly progressive neurological disease, OR - Severe medical condition that makes risks of surgery outweigh the potential benefit The patient was told the most common risks and complications associated with a total knee replacement include, but are not limited to: blood clots in the leg, fatal pulmonary embolism, dislocation of the prosthesis, intraoperative and postoperative fractures of the femur or tibia, infection, failure of the prosthesis or grafting materials, complications from anesthesia, reactions to blood transfusions, postoperative leg length inequality, instability of the knee replacement, nerve damage or injury, vascular injury, delayed wound healing, infection, other injury or even . In addition, there are risks associated with anesthesia given during this operation. Also, the patient was told that after undergoing a total knee replacement there may still be persistent pain or disability. The patient was informed that the success of this operation in part depends upon the mechanical devices which are going to be implanted and that these devices can fail or malfunction, and may need to be repaired or replaced and there are no guarantees as to the longevity of this device or its parts and that it or its parts could fail prematurely. The patient was also notified that during the course of surgery, there may be a need to use bone graft from donors, and that any bone graft used will be carefully screened for communicable diseases, including AIDS, hepatitis, Shaq-Creutzfeldt, or other diseases, but despite the screening procedures, there is a small chance that they could contract one of these diseases. Finally, the patient was asked to follow completely and fully with all advice and recommended treatments, and that recovery and ultimate outcome are affected by their compliance with recommended treatment. We discussed the risks, benefits and treatment alternatives, and the patient is interested in proceeding with surgery. We will set up surgery at her convenience Advanced Care Planning Discussion Advance care planning discussed with:: patient Office Procedures GNS Level of Care Nursing/Assessment Patient Status: Established Patient Nursing Assessment/Reassesment: Medication Reconciliation, Update PMH in EMR and Vital Signs Coordination of Care: Complex Care and Chronic Disease 1-5, Education Complex Pt/Fam, Consent,records obtained, informed consent, Results/Orders obtained and Staff clarify orders Established Patient Charge Established Patient Point Assignment: 95 Established Patient Point Charge: Level 3 (80-115) MA Intake Visit Data Collection New Patient or Established: Established Patient (seen at [facility] within 3 years) Reason for Visit:: LEFT KNEE Seen by Clinical Staff ONLY (RN/MA): No Verbal consent obtained for Telemed visit?: No Clinical Quality Assurance Specialist Required: No PCP or OBGYN visit in last 3 months: Yes Hx Now: No Do You Feel Safe at Home: Yes Authorities Contacted: N/A Questionairres Past Medical History Past Medical History Have you ever been diagnosed with any of the following: Cardiology Problems Congestive Heart Failure: No Hypertension: Yes Respiratory Problems Chronic Obstructive Pulmonary Disease (COPD): No Smoking: No Smoking Exposure: No Genital/Urinary Problems Renal Disease: No Musculoskeletal Problems Arthritis: Yes Endocrine Problems Diabetes Mellitus Type 1: No Diabetes Mellitus Type 2: No Other Problems Blood Transfusions: Yes Subjective Visit Visit for: follow up visit and knee Immunization / Flu Flu Vaccine in the Last 12 Months: Yes Flu Vaccine Exclusion Criteria: Already Received History of Present Illness Chief complaint: Left knee pain Date of injury / onset of symptoms: 11/2023 Erin is a pleasant 74-year-old female with a prior right total knee replacement done quite a while ago. She has some right knee pain on the medial side that started recently. This came out of the blue there is no specific trauma. On the anteromedial aspect. It has improved somewhat but there is stil l some pain In addition, she reports significant left knee pain with valgus deformity. The pain has increased. She has failed conservative treatment including anti- inflammatories and injections in the past. The left knee pain is affecting her quality life and happiness Personal History Occupation: RETIRED Pain Pain level (0-10): 2 Pain duration: ON AND OFF Pain location: anterior Pain quality: aching Associated signs & symptoms: none Ambulatory data Ambulatory device: none Treatments Improvement with previous injections: No Improvement with PT: No Improvement with NSAIDS: no Review of Systems Review of Systems: All systems negative unless otherwise noted in HPI.
[2025-07-18 10:26] VITALS: BP 135/77; PULSE 90; RESP 18; TEMP 36.6; O2SAT 96; BMI 26.6
== END 2025-07-18 10:34 | disposition home or self-care (01) ==
LOC: HODSRG 09:53
PROVIDERS: PCP Family Medicine; Referring Provider Family Medicine; Supervising Provider Orthopaedic Surgery Adult Reconstructive Orthopaedic Surgery; Visit Provider Orthopaedic Surgery Adult Reconstructive Orthopaedic Surgery
DX: M17.12 Unilateral primary osteoarthritis, left knee (principal); M25.562 Pain in left knee; M25.561 Pain in right knee; Z96.651 Presence of right artificial knee joint; M21.062 Valgus deformity, not elsewhere classified, left knee; I10 Essential (primary) hypertension
CPT/HCPCS: 99213; G0463

== ENCOUNTER → 2025-08-09 | Outpatient (CLI) | payer MEDICARE, BC, SELFPAY ==
[2025-08-09 10:55] VITALS: BMI 27.6
[2025-08-09 12:07] LABS: Basophils # (Auto) 0.1 Thou/mm3 (0.0-0.2); Basophils % (Auto) 1 % (0-2.5); Eosinophils # (Auto) 0.2 Thou/mm3 (0.0-0.5); Eosinophils % (Auto) 5 % (0-10); Hematocrit 40.2 % (36.0-46.0); Hemoglobin 13.4 g/dL (12.0-16.0); Immature Granulocytes Auto 0.01 Thou/mm3 (0.00-0.00); Lymphocytes # (Auto) 1.6 Thou/mm3 (1.0-4.8); Lymphocytes % (Auto) 30 % (10-50); Mean Corpuscular HGB Conc 33.3 g/dl (31.0-37.0); Mean Corpuscular Hemoglobin 30.5 pg (25.0-35.0); Mean Corpuscular Volume 91 fL (80-100); Monocytes # (Auto) 0.4 Thou/mm3 (0.0-0.8); Monocytes % (Auto) 8 % (0-12); Neutrophils # (Auto) 2.9 Thou/mm3 (1.8-7.7); Neutrophils % (Auto) 56 % (37-80); Nucleated Red Blood Cell # 0.00 Thou/mm3 (0.00-0.00); Nucleated Red Blood Cell % 0 /100 WBC (0); Platelet Count 295 Thou/mm3 (140-440); RDW Standard Deviation 44.2 fL (36.4-46.3); Red Blood Count 4.40 Miln/mm3 (4.00-5.20); White Blood Count 5.2 Thou/mm3 (3.6-11.0)
[2025-08-09 12:15] LABS: INR 0.9 (0.9-1.3); Partial Thromboplastin Time 32.3 Seconds (22.0-36.0); Prothrombin Time 10.1 Seconds (9.0-12.2)
[2025-08-09 12:22] LABS: Alanine Aminotransferase 14 U/L (10-49); Albumin, Serum 4.5 gm/dL (3.4-4.8); Albumin/Globulin Ratio 1.6 (1.2-2.2); Alkaline Phosphatase 84 U/L (46-116); Anion Gap 10 (7-16); Aspartate Amino Transferase 26 U/L (0-34); BUN/Creatinine Ratio 16 Ratio (12-20); Bilirubin,Total 0.4 mg/dL (0.3-1.2); Blood Urea Nitrogen 16 mg/dL (9-23); Calcium 9.4 mg/dL (8.3-10.6); Calcium (Corrected) 9.4 mg/dL (8.5-10.1); Carbon Dioxide 28.0 mMol/L (20.0-31.0); Chloride 103 mMol/L (98-107); Creatinine (Component) 1.0 mg/dL (0.6-1.3); Estimated Creatinine Clearance 49.4 mL/min (>60); Globulin 2.8 gm/dL (2.3-3.5); Glucose 97 mg/dL (74-106); Osmolality,Calculated 282 (275-295); Potassium 4.2 mMol/L (3.4-5.1); Sodium 141 mMol/L (136-145); Total Protein 7.3 gm/dL (5.7-8.2); eGFR 59 See Note
== END | disposition home or self-care (01) ==
LOC: SLAB 08-12 10:06
PROVIDERS: Anesthesiology; PCP Family Medicine; Referring Provider Orthopaedic Surgery Adult Reconstructive Orthopaedic Surgery; Visit Provider Orthopaedic Surgery Adult Reconstructive Orthopaedic Surgery
DX: M17.12 Unilateral primary osteoarthritis, left knee (principal)
CPT/HCPCS: 36415; 80053; 85025; 85610; 85730

== ENCOUNTER → 2025-08-12 | Outpatient (CLI) | payer MEDICARE, BC, SELFPAY ==
[2025-08-12 11:27] LABS: Basophils # (Auto) 0.1 Thou/mm3 (0.0-0.2); Basophils % (Auto) 1 % (0-2.5); Eosinophils # (Auto) 0.2 Thou/mm3 (0.0-0.5); Eosinophils % (Auto) 3 % (0-10); Hematocrit 41.2 % (36.0-46.0); Hemoglobin 13.3 g/dL (12.0-16.0); Immature Granulocytes Auto 0.02 Thou/mm3 (0.00-0.00); Lymphocytes # (Auto) 0.9 Thou/mm3 (1.0-4.8); Lymphocytes % (Auto) 15 % (10-50); Mean Corpuscular HGB Conc 32.3 g/dl (31.0-37.0); Mean Corpuscular Hemoglobin 29.6 pg (25.0-35.0); Mean Corpuscular Volume 92 fL (80-100); Monocytes # (Auto) 0.4 Thou/mm3 (0.0-0.8); Monocytes % (Auto) 6 % (0-12); Neutrophils # (Auto) 4.5 Thou/mm3 (1.8-7.7); Neutrophils % (Auto) 75 % (37-80); Nucleated Red Blood Cell # 0.00 Thou/mm3 (0.00-0.00); Nucleated Red Blood Cell % 0 /100 WBC (0); Platelet Count 269 Thou/mm3 (140-440); RDW Standard Deviation 44.7 fL (36.4-46.3); Red Blood Count 4.49 Miln/mm3 (4.00-5.20); White Blood Count 6.0 Thou/mm3 (3.6-11.0)
[2025-08-12 11:50] LABS: Alanine Aminotransferase 98 U/L (10-49); Albumin, Serum 4.4 gm/dL (3.4-4.8); Albumin/Globulin Ratio 1.8 (1.2-2.2); Alkaline Phosphatase 152 U/L (46-116); Anion Gap 10 (7-16); Aspartate Amino Transferase 116 U/L (0-34); BUN/Creatinine Ratio 19 Ratio (12-20); Bilirubin,Total 0.4 mg/dL (0.3-1.2); Blood Urea Nitrogen 17 mg/dL (9-23); Calcium 9.7 mg/dL (8.3-10.6); Calcium (Corrected) 9.7 mg/dL (8.5-10.1); Carbon Dioxide 29.1 mMol/L (20.0-31.0); Chloride 104 mMol/L (98-107); Creatinine (Component) 0.9 mg/dL (0.6-1.3); Globulin 2.5 gm/dL (2.3-3.5); Glucose 85 mg/dL (74-106); Osmolality,Calculated 285 (275-295); Potassium 4.5 mMol/L (3.4-5.1); Sodium 143 mMol/L (136-145); Total Protein 6.9 gm/dL (5.7-8.2); Uric Acid 5.4 mg/dL (3.1-7.8); eGFR > 60 See Note
== END | disposition home or self-care (01) ==
LOC: COPL 10:48
PROVIDERS: PCP Family Medicine; Referring Provider Family Medicine; Visit Provider Family Medicine
DX: M10.072 Idiopathic gout, left ankle and foot (principal); Z79.1 Long term (current) use of non-steroidal anti-inflammatories (NSAID)
CPT/HCPCS: 36415; 80053; 84550; 85025

== ENCOUNTER → 2025-08-13 | Outpatient (CLI) | payer MEDICARE, BC, SELFPAY ==
--- NOTE | 2025-08-13 10:18 | XR_ITS ---
Examination: Foot, left, 3 views Technique: AP, oblique, lateral views foot, 3 views Date and time of exam: August 13, 2025, 1151 hours INDICATIONS: Foot pain chronic, diagnosis gouty arthropathy FINDINGS: Severe erosive arthritic change involving the first metatarsal phalangeal joint with soft tissue swelling No fracture Prominent osteopenia Mild ossification in the Achilles insertion IMPRESSION: Severe erosive arthritic change first metatarsophalangeal joint
== END | disposition home or self-care (01) ==
LOC: CDIM 10:00
PROVIDERS: PCP Family Medicine; Referring Provider Orthopaedic Surgery; Visit Provider Orthopaedic Surgery
DX: M13.872 Other specified arthritis, left ankle and foot (principal)
CPT/HCPCS: 73630